=== PATIENT | female | born 1995 | race Caucasian/White ===

== ENCOUNTER 2020-05-14 20:44 | Emergency (ER) | payer MEDICAID ==
[~2020-05-14] VITALS: Ht 160 cm; Wt 117.9 kg
[2020-05-14 20:45] VITALS: Ht 160 cm; Wt 117.9 kg
[2020-05-14 22:40] VITALS: BP 133/88
== END 2020-05-14 22:40 | disposition home or self-care (01) ==
LOC: ED 20:44
DX: U07.1 COVID-19 (principal); J12.89 Other viral pneumonia
CPT/HCPCS: Q0092; U0003-CS